=== PATIENT | female | born 1995 | race Caucasian/White ===

== ENCOUNTER 2024-06-25 08:04 | Inpatient (IN) ==
[2024-06-25] MEDS: SODIUM CHLORIDE 0.9% 1,000 ML IV SCH (08:44)
[2024-06-25] MEDS ORDERED: OXYTOCIN 30 UNITS/NSS 30 UNITS/500 ML BAG IV PRN (09:28)
[2024-06-25] MEDS ORDERED: CALCIUM CARBONATE 500 MG CHEWABLE TAB PO PRN (09:28)
[2024-06-25] MEDS ORDERED: LIDOCAINE 1% LOCAL 20 ML VIAL INFIL PRN (09:28)
--- NOTE | 2024-06-25 10:26 | History & Physical Report ---
Date of Service June 25, 2024 Assessment & Plan (1) Post-term , 40-42 weeks of gestation: Plan: Primip with Intrauterine at 40-5/7 weeks presents for induction of labor for postterm . Cervical balloon was successfully placed. We will begin Pitocin induction per labor delivery protocol. Epidural when requested. Anticipate vaginal . Admission and Anticipated Discharge Date Admission Date: June 25, 2024 History of Present Illness Primary Care Provider: KAYLYN Painting Patient is a 28-year-old 1 P0 female EDC 06/20/2024 who presents for post term induction of labor. has been uncomplicated except for elevated liver enzymes early in . GBS negative. Blood type is O+. Allergies Allergy/AdvReac Type Severity Reaction Status Date / Time No Known Drug Allergies Allergy Verified 06/24/24 10:56 Home Medications Medication Instructions Recorded Confirmed Type 21-iron fu-folic acid 1 tab PO UD 11/01/23 06/24/24 History [ Complete] breast pump #1 ea 04/24/24 06/24/24 Rx Patient History Medical History Varicella vaccination History of chicken pox Fibroadenoma 2011 removal COVID-19 (11/2021) Surgical History S/P excision of fibroadenoma of breast History of bunionectomy 2017 L foot Family History Mother Hypertension Colorectal cancer Father Dyslipidemia Denies family history of Ovarian cancer Breast cancer Social History Smoking Status: Never smoker Second Hand Exposure: No; Do You Dip or Chew Tobacco: No; Hx Alcohol Use: Yes Alcohol type: hard liquor Alcohol Intake Frequency: Monthly or Less Hx Substance Use: No Preferred Language: Thai Visual Impairment: Limited Hearing Ability: Normal Dock Attendant Required: No Beliefs That Will Affect Care: None marital status: Single marital status details: cate Doe (29) [phone] Current Living Situation: Spouse Current Living Situation Comment: lives with focarlos, dogs current occupational status: employed current occupation: [employer] Feels Safe at Home: Yes Childhood Exposure to Second-Hand Smoke: No Diet: regular caffeine: Yes Dental Care, Regularly: Yes Physical Activity Frequency: 3-4 Times per Week Seatbelt Use: always Sunscreen Use: Yes Do you think of yourself as: straight/heterosexual Assistive Devices: None Review of Systems All systems reviewed & are unremarkable except as noted in HPI & below Physical Exam Constitutional: WD/WN, vitals as above Psychiatric: A+Ox3, euthymic affect Genitourinary: OB Exam Abdomen: + vertex, + estimated weight (8-9) and + irregular contractions (rare) Manual OB Exam: + cervical dilation (1-2), + cervical effacement 60% and + station -1 (posterior) OB Exam Monitor Tracing: + external FHT monitor used, + external uterine monitor used, + category I and + normal FHT variability Patient agrees to placement of cervical balloon. After the cervix was visualized with a speculum, a Arzola catheter was threaded into the cervix to the internal os with the assistance of a stylette. 40 cc of sterile water was then instilled into the balloon. The stylette was removed and the catheter was placed on traction and secured to her left thigh. She tolerated the procedure well. Results & Data Vital Signs (Past 12 Hours) Vital Signs Temp Pulse Resp BP 06/25/24 08:59 97.7 F 81 19 133/79 06/25/24 08:15 97.7 F 81 18 133/79 Coding Level of Care Code 37234 INT INP/OBS CARE MIN Diagnoses Post-term , 40-42 weeks of gestation O48.0
[2024-06-25] MEDS: OXYTOCIN 30 UNITS/NSS 30 UNITS/500 ML BAG IV PRN (10:42)
[2024-06-25 11:04] LABS: Hematocrit (blood only) 36.4 % (37.0-47.0); Hemoglobin 12.2 g/dl (12.0-16.0); Mean Corpuscular Hemoglobin 28.8 pg (25.0-34.0); Mean Corpuscular Hgb Conc 33.5 g/dL (32.0-36.0); Mean Corpuscular Volume 85.8 fL (80.0-100.0); Mean Platelet Volume 11.9 fL (9.4-12.4); Platelet Count 132 K/uL (130-400); RDW Coefficient of Variation 12.7 % (11.5-14.5); RDW Standard Deviation 39.3 fL (36.4-46.3); Red Blood Count 4.24 M/uL (4.20-5.40); White Blood Count 6.85 K/ul (4.8-10.8)
[2024-06-25] MEDS ORDERED: NALBUPHINE HCL INJ 10 MG/ML AMP IV PRN (12:45)
[2024-06-25] MEDS ORDERED: fentaNYL citrate PF 100 MCG/2 ML VIAL EPI PRN (12:45)
[2024-06-25] MEDS ORDERED: SODIUM CHLORIDE 0.9% PF INJ 10 ML VIAL EPI PRN (12:45)
[2024-06-25] MEDS ORDERED: BUPIVACAINE 0.25% PF 30 ML VIAL EPI PRN (12:45)
[2024-06-25] MEDS ORDERED: NALOXONE HCL 1 MG in SODIUM CHLORIDE 0.9% 1,000 ML IV PRN (12:45)
[2024-06-25] MEDS ORDERED: LIDOCAINE 2% MPF LOCAL 5 ML VIAL EPI PRN (12:45)
[2024-06-25] MEDS ORDERED: ROPIVACAINE 0.5% PF 5 MG/ML 20 ML VIAL EPI PRN (12:45)
[2024-06-25] MEDS ORDERED: ePHEDrine sulfate 50 MG/ML AMP IV PRN (12:45)
[2024-06-25] MEDS ORDERED: NALOXONE HCL 0.4 MG/1 ML VIAL/CARP IV PRN (12:45)
[2024-06-25] MEDS ORDERED: diphenhydrAMINE 50 MG/ML VIAL IV PRN (12:45)
--- NOTE | 2024-06-25 12:45 | Anesthesiology Consultation ---
Date of Service June 25, 2024 Assessment & Plan Chart Review Chart Review: Acceptable Risk for Labor Epidural Consults Requested none History Height/Weight Height: 5 ft 10 in Weight: 86.275 kg Allergies Allergy/AdvReac Type Severity Reaction Status Date / Time No Known Drug Allergies Allergy Verified 06/24/24 10:56 Medications Home Medications Medication Instructions Recorded Confirmed Last Taken 21-iron fu-folic acid 1 tab PO UD 11/01/23 06/24/24 Unknown [ Complete] breast pump #1 ea 04/24/24 06/24/24 Unknown Active Medications Generic Name Dose Route Start Last Admin Trade Name Freq PRN Reason Stop Dose Admin Oxytocin 30 units in 500 mls @ 6 mls/hr 06/25/24 09:27 06/25/24 12:30 Pitocin 30 Units/Nss IV 06/27/24 09:26 0.36 units/hr .Q24H PRN 6 mls/hr Labor Induction/Augmentation Titration Protocol 0.36 UNITS/HR Sodium Chloride 1,000 mls @ 80 mls/hr 06/25/24 09:45 06/25/24 12:42 Nss IV 06/26/24 09:44 999 mls/hr .[id number] TRISTAN Infusion Past Medical History Medical History Varicella vaccination History of chicken pox Fibroadenoma 2011 removal COVID-19 (11/2021) Past Family History Family History Mother Hypertension Colorectal cancer Father Dyslipidemia Denies family history of Ovarian cancer Breast cancer Past Surgical History Surgical History S/P excision of fibroadenoma of breast History of bunionectomy 2017 L foot Social History Smoking Status: Never smoker Do You Dip or Chew Tobacco: No Hx Alcohol Use: Yes Alcohol type: hard liquor Hx Substance Use: No Physical Exam Vital Signs Last Vital Signs Temp 36.5 C 06/25/24 08:59 Pulse 63 06/25/24 11:41 Resp 19 06/25/24 08:59 BP 134/78 06/25/24 11:41 Testing Laboratory Results 06/25/24 10:33
[2024-06-25] MEDS: BUPIVACAINE 0.25% PF 30 ML VIAL ONE (13:20)
[2024-06-25] MEDS: fentaNYL citrate PF 100 MCG/2 ML VIAL ONE (13:20)
[2024-06-25] MEDS: ePHEDrine sulfate 50 MG/ML AMP ONE (13:20)
[2024-06-25] MEDS: SODIUM CHLORIDE 0.9% PF INJ 10 ML VIAL ONE (13:21)
[2024-06-25] MEDS: fentANYL 2 MCG/ML BUPIVacaine 0.125%-NSS 100ML BAG ONE (13:21)
[2024-06-25] MEDS: LIDOCAINE 2%/EPINEPHRINE 1:200,000 20 ML PF EPI STA (13:21)
[2024-06-25] MEDS: LIDOCAINE 2%/EPINEPHRINE 1:200,000 20 ML PF ONE (13:21)
[2024-06-25] MEDS: fentANYL 2 MCG/ML BUPIVacaine 0.125%-NSS 100ML BAG EPI PRN (13:23)
[2024-06-25] MEDS: SODIUM CHLORIDE 0.9% PF INJ 10 ML VIAL EPI STA (18:43)
[2024-06-25] MEDS: fentaNYL citrate PF 100 MCG/2 ML VIAL EPI STA (18:43)
[2024-06-25] MEDS: BUPIVACAINE 0.25% PF 30 ML VIAL EPI STA (18:43)
[2024-06-25] MEDS: ONDANSETRON INJ 2 MG/ML 2 ML VIAL IV PRN (19:59)
[2024-06-26 00:43] VITALS: O2SAT 97
[2024-06-26] MEDS ORDERED: oxyCODONE/ACETAMINOPHEN 5mg/325mg TAB PO PRN (01:03)
[2024-06-26] MEDS ORDERED: bisacodyL 10 MG SUPP PR PRN (01:03)
[2024-06-26] MEDS ORDERED: HYDROCORTISONE ACETATE 25 MG SUPP PR PRN (01:03)
[2024-06-26] MEDS ORDERED: ACETAMINOPHEN 325 MG TAB PO PRN (01:03)
[2024-06-26] MEDS ORDERED: OXYTOCIN 30 UNITS/NSS 30 UNITS/500 ML BAG IV PRN (01:03)
--- NOTE | 2024-06-26 01:10 | Delivery Summary ---
Vaginal Delivery Summary Date of Service June 26, 2024 Vaginal Delivery Summary and 2nd Degree LAC Patient is a 28-year-old 1 P0 female who presented for induction of labor because of postterm . She had a cervical balloon placed for an unfavorable cervix as well as starting Pitocin induction per labor and delivery protocol on the morning of her admission. After the balloon was expelled, she received epidural analgesia and membranes were ruptured for thin meconium stained fluid. She progressed to full dilation and pushed effectively over intact perineum for delivery of a viable male . After the head was delivered there was a loose nuchal cord noted and it was reduced prior to delivering the shoulders. Shoulders were delivered without maternal effort and the rest the delivered easily. He was initially placed on mother's abdomen for further attention and drying. He initially had low tone and poor respiratory effort and he was taken to the baby bed for stimulation and treatment. With further stimulation, he was then vigorous & crying. The cord was clamped and cut prior to a minute because of this. After cord blood was obtained, the placenta was expressed intact with a three-vessel cord. bleeding was controlled with dilute Pitocin. A second-degree vaginal perineal laceration and bilateral labial lacerations were repaired with 3-0 chromic in usual fashion. QBL was 268 mL. Mother and infant were bonding well after delivery[place] [facility] [place] Delivery Type Details: and 2nd Degree LAC
[2024-06-26] MEDS: IBUPROFEN 600 MG TAB PO PRN (01:31)
[2024-06-26] MEDS: BENZOCAINE 20% SPRY 85 APPLN/85 GM CAN EXT PRN (01:32)
[2024-06-26] MEDS: ACETAMINOPHEN 325 MG TAB PO PRN (04:39)
--- NOTE | 2024-06-26 06:55 | Medical Student Progress Note ---
Date of Service June 26, 2024 Assessment & Plan (1) Normal course: Plan: Patient is a 28 yr old day 1 s/p with an epidural and 2nd degree LAC. She is recovering very well and is ambulating and urinating. She has not had a BM yet and has been instructed to watch for passing gas. # Bleeding: She is currently bleeding and not passing any large clots. We expect her bleeding to continue to decrease with time. -Continue to monitor bleeding status #Pain Control: Her pain is well controlled on current regime. -Continue with ibuprofen and acetaminophen. #: -Patient is a first time mother and could benefit from seeing services to optimize her experience. #Discharge: She is overall recovering very well. Continue to monitor and considering discharge 48hrs after . Admission and Anticipated Discharge Date Admission Date: June 25, 2024 Subjective Patient is a 28 yr old day 1 s/p . Overall, she is doing very well and has no concerns at this time. She is able to ambulate and independently empty her bladder. She is unsure if she has passed any gas but has not had a BM. She is continuing to bleed but has not passed any large clots. Her pain is well managed on ibuprofen and acetaminophen. She rates it 2/10 at this time. She plans to breastfeed her baby. Physical Exam Physical Exam: Well appearing, NAD Respiratory: Lungs CTAB without wheezes, rales, rhonchi Cardiovascular: Heart RRR. A soft systolic flow murmur auscultate along the left sternal boarder. No rubs or gallops. Gastrointestinal (Abdomen): Abdomen is soft, nontender, nondistended. Uterus is firm, nontender, palpated below the umbilicus. Psychiatric: Appropriate mood and affect. Results & Data Vital Signs (Past 12 Hours) Vital Signs Temp Pulse Pulse Resp BP BP Pulse Ox 06/26/24 03:30 36.6 C 59 L 14 119/72 06/26/24 03:07 67 122/61 06/26/24 02:52 71 122/58 L 06/26/24 02:50 16 06/26/24 02:37 66 117/57 L 06/26/24 02:22 61 121/64 06/26/24 02:20 16 06/26/24 02:07 59 L 127/71 06/26/24 01:52 67 119/68 06/26/24 01:50 16 06/26/24 01:37 67 126/60 06/26/24 01:35 16 06/26/24 01:22 60 130/63 06/26/24 01:20 18 06/26/24 01:07 72 146/65 H 06/26/24 01:05 18 06/26/24 00:51 97 06/26/24 00:51 72 06/26/24 00:51 69 137/81 06/26/24 00:50 18 06/26/24 00:46 71 97 06/26/24 00:41 71 97 06/26/24 00:36 70 96 06/26/24 00:31 70 98 06/26/24 00:26 71 98 06/26/24 00:21 68 99 06/26/24 00:16 68 96 06/26/24 00:12 94 H 86 L 06/26/24 00:11 65 97 06/26/24 00:06 68 97 06/26/24 00:01 69 97 06/25/24 23:56 98 06/25/24 23:56 71 06/25/24 23:51 97 06/25/24 23:51 69 06/25/24 23:48 94 06/25/24 23:48 74 06/25/24 23:46 98 06/25/24 23:46 89 06/25/24 23:45 63 06/25/24 23:45 131/63 06/25/24 23:41 97 06/25/24 23:41 73 06/25/24 23:36 98 06/25/24 23:36 67 06/25/24 23:33 93 06/25/24 23:33 73 06/25/24 23:31 98 06/25/24 23:31 71 06/25/24 23:29 18 06/25/24 23:29 36.7 C 18 06/25/24 23:26 98 06/25/24 23:26 66 06/25/24 23:21 98 06/25/24 23:21 67 06/25/24 23:16 98 06/25/24 23:16 65 06/25/24 23:14 59 L 06/25/24 23:14 134/77 06/25/24 23:11 98 06/25/24 23:11 64 06/25/24 23:06 98 06/25/24 23:06 64 06/25/24 23:01 98 06/25/24 23:01 72 06/25/24 23:00 60 06/25/24 23:00 137/77 06/25/24 22:56 99 06/25/24 22:56 61 06/25/24 22:51 98 06/25/24 22:51 66 06/25/24 22:46 99 06/25/24 22:46 60 06/25/24 22:45 57 L 06/25/24 22:45 131/73 06/25/24 22:41 98 06/25/24 22:41 60 06/25/24 22:36 97 06/25/24 22:36 63 06/25/24 22:31 98 06/25/24 22:31 62 06/25/24 22:29 63 06/25/24 22:29 142/84 H 06/25/24 22:26 98 06/25/24 22:26 62 06/25/24 22:21 98 06/25/24 22:21 60 06/25/24 22:16 98 06/25/24 22:16 59 L 06/25/24 22:14 60 06/25/24 22:14 141/80 H 06/25/24 22:11 98 06/25/24 22:11 57 L 06/25/24 22:06 98 06/25/24 22:06 60 06/25/24 22:01 99 06/25/24 22:01 59 L 06/25/24 22:00 61 06/25/24 22:00 138/75 06/25/24 21:56 99 06/25/24 21:56 59 L 06/25/24 21:51 99 06/25/24 21:51 63 06/25/24 21:46 99 06/25/24 21:46 67 06/25/24 21:44 61 06/25/24 21:44 136/83 06/25/24 21:41 99 06/25/24 21:41 65 06/25/24 21:36 97 06/25/24 21:36 53 L 06/25/24 21:31 98 06/25/24 21:31 54 L 06/25/24 21:28 53 L 06/25/24 21:28 130/68 06/25/24 21:26 99 06/25/24 21:26 56 L 06/25/24 21:21 98 06/25/24 21:21 54 L 06/25/24 21:16 99 06/25/24 21:16 55 L 06/25/24 21:14 55 L 06/25/24 21:14 130/67 06/25/24 21:11 97 06/25/24 21:11 56 L 06/25/24 21:06 98 06/25/24 21:06 54 L 06/25/24 21:01 98 06/25/24 21:01 57 L 06/25/24 21:00 56 L 06/25/24 21:00 131/64 06/25/24 20:56 98 06/25/24 20:56 65 06/25/24 20:51 98 06/25/24 20:51 61 06/25/24 20:46 98 06/25/24 20:46 57 L 06/25/24 20:45 60 06/25/24 20:45 136/79 06/25/24 20:41 98 06/25/24 20:41 55 L 06/25/24 20:36 98 06/25/24 20:36 68 06/25/24 20:31 99 06/25/24 20:31 63 06/25/24 20:30 57 L 06/25/24 20:30 140/77 06/25/24 20:26 99 06/25/24 20:26 65 06/25/24 20:21 98 06/25/24 20:21 70 06/25/24 20:16 98 06/25/24 20:16 67 06/25/24 20:14 62 06/25/24 20:14 140/78 06/25/24 20:11 99 06/25/24 20:11 63 06/25/24 20:06 98 06/25/24 20:06 66 06/25/24 20:01 99 06/25/24 20:01 66 06/25/24 20:00 18 06/25/24 20:00 18 06/25/24 20:00 66 06/25/24 20:00 142/81 H 06/25/24 19:56 99 06/25/24 19:56 64 06/25/24 19:51 98 06/25/24 19:51 63 06/25/24 19:46 97 06/25/24 19:46 66 06/25/24 19:44 65 06/25/24 19:44 147/77 H 06/25/24 19:41 98 06/25/24 19:41 71 06/25/24 19:36 99 06/25/24 19:36 68 06/25/24 19:31 98 06/25/24 19:31 59 L 06/25/24 19:29 60 06/25/24 19:29 134/72 06/25/24 19:26 99 06/25/24 19:26 59 L 06/25/24 19:21 98 06/25/24 19:21 67 06/25/24 19:20 06/25/24 19:16 97 06/25/24 19:16 73 06/25/24 19:15 18 06/25/24 19:15 36.7 C 18 06/25/24 19:14 67 06/25/24 19:14 140/78 06/25/24 19:11 96 06/25/24 19:11 65 06/25/24 19:06 99 06/25/24 19:06 59 L 06/25/24 19:01 98 06/25/24 19:01 55 L 06/25/24 18:59 51 L 06/25/24 18:59 129/68 06/25/24 18:56 97 06/25/24 18:56 55 L 06/25/24 18:51 97 06/25/24 18:51 54 L O2 Del Method 06/26/24 03:30 Room Air 06/26/24 03:07 06/26/24 02:52 06/26/24 02:50 06/26/24 02:37 06/26/24 02:22 06/26/24 02:20 06/26/24 02:07 06/26/24 01:52 06/26/24 01:50 06/26/24 01:37 06/26/24 01:35 06/26/24 01:22 06/26/24 01:20 06/26/24 01:07 06/26/24 01:05 06/26/24 00:51 06/26/24 00:51 06/26/24 00:51 06/26/24 00:50 06/26/24 00:46 06/26/24 00:41 06/26/24 00:36 06/26/24 00:31 06/26/24 00:26 06/26/24 00:21 06/26/24 00:16 06/26/24 00:12 06/26/24 00:11 06/26/24 00:06 06/26/24 00:01 06/25/24 23:56 06/25/24 23:56 06/25/24 23:51 06/25/24 23:51 06/25/24 23:48 06/25/24 23:48 06/25/24 23:46 06/25/24 23:46 06/25/24 23:45 06/25/24 23:45 06/25/24 23:41 06/25/24 23:41 06/25/24 23:36 06/25/24 23:36 06/25/24 23:33 06/25/24 23:33 06/25/24 23:31 06/25/24 23:31 06/25/24 23:29 06/25/24 23:29 06/25/24 23:26 06/25/24 23:26 06/25/24 23:21 06/25/24 23:21 06/25/24 23:16 06/25/24 23:16 06/25/24 23:14 06/25/24 23:14 06/25/24 23:11 06/25/24 23:11 06/25/24 23:06 06/25/24 23:06 06/25/24 23:01 06/25/24 23:01 06/25/24 23:00 06/25/24 23:00 06/25/24 22:56 06/25/24 22:56 06/25/24 22:51 06/25/24 22:51 06/25/24 22:46 06/25/24 22:46 06/25/24 22:45 06/25/24 22:45 06/25/24 22:41 06/25/24 22:41 06/25/24 22:36 06/25/24 22:36 06/25/24 22:31 06/25/24 22:31 06/25/24 22:29 06/25/24 22:29 06/25/24 22:26 06/25/24 22:26 06/25/24 22:21 06/25/24 22:21 06/25/24 22:16 06/25/24 22:16 06/25/24 22:14 06/25/24 22:14 06/25/24 22:11 06/25/24 22:11 06/25/24 22:06 06/25/24 22:06 06/25/24 22:01 06/25/24 22:01 06/25/24 22:00 06/25/24 22:00 06/25/24 21:56 06/25/24 21:56 06/25/24 21:51 06/25/24 21:51 06/25/24 21:46 06/25/24 21:46 06/25/24 21:44 06/25/24 21:44 06/25/24 21:41 06/25/24 21:41 06/25/24 21:36 06/25/24 21:36 06/25/24 21:31 06/25/24 21:31 06/25/24 21:28 06/25/24 21:28 06/25/24 21:26 06/25/24 21:26 06/25/24 21:21 06/25/24 21:21 06/25/24 21:16 06/25/24 21:16 06/25/24 21:14 06/25/24 21:14 06/25/24 21:11 06/25/24 21:11 06/25/24 21:06 06/25/24 21:06 06/25/24 21:01 06/25/24 21:01 06/25/24 21:00 06/25/24 21:00 06/25/24 20:56 06/25/24 20:56 06/25/24 20:51 06/25/24 20:51 06/25/24 20:46 06/25/24 20:46 06/25/24 20:45 06/25/24 20:45 06/25/24 20:41 06/25/24 20:41 06/25/24 20:36 06/25/24 20:36 06/25/24 20:31 06/25/24 20:31 06/25/24 20:30 06/25/24 20:30 06/25/24 20:26 06/25/24 20:26 06/25/24 20:21 06/25/24 20:21 06/25/24 20:16 06/25/24 20:16 06/25/24 20:14 06/25/24 20:14 06/25/24 20:11 06/25/24 20:11 06/25/24 20:06 06/25/24 20:06 06/25/24 20:01 06/25/24 20:01 06/25/24 20:00 06/25/24 20:00 06/25/24 20:00 06/25/24 20:00 06/25/24 19:56 06/25/24 19:56 06/25/24 19:51 06/25/24 19:51 06/25/24 19:46 06/25/24 19:46 06/25/24 19:44 06/25/24 19:44 06/25/24 19:41 06/25/24 19:41 06/25/24 19:36 06/25/24 19:36 06/25/24 19:31 06/25/24 19:31 06/25/24 19:29 06/25/24 19:29 06/25/24 19:26 06/25/24 19:26 06/25/24 19:21 06/25/24 19:21 06/25/24 19:20 Room Air 06/25/24 19:16 06/25/24 19:16 06/25/24 19:15 06/25/24 19:15 06/25/24 19:14 06/25/24 19:14 06/25/24 19:11 06/25/24 19:11 06/25/24 19:06 06/25/24 19:06 06/25/24 19:01 06/25/24 19:01 06/25/24 18:59 06/25/24 18:59 06/25/24 18:56 06/25/24 18:56 06/25/24 18:51 06/25/24 18:51
--- NOTE | 2024-06-26 08:30 | Obstetrical Progress Note ---
Date of Service June 26, 2024 Assessment & Plan (1) Normal course: satisfactory course continue current plan Subjective Ambulation: ambulating normally Voiding: no voiding problems Passing Gas:: Yes Diet Tolerance:: regular diet Lochia:: Moderate Feeding Type:: breast feeding doing well this morning. minimal perineal pain Review of Systems All systems reviewed & are unremarkable except as noted in HPI & below Physical Exam Constitutional WD/WN, vitals as above Psychiatric A+Ox3, euthymic affect Genitourinary OB Exam Abdomen: + fundal height Fundus: + firm and + relation to umbilicus (1 below ) Results & Data Vital Signs (Past 12 Hours) Vital Signs Temp Pulse Pulse Resp BP BP Pulse Ox 06/26/24 03:30 97.9 F 59 L 14 119/72 06/26/24 03:07 67 122/61 06/26/24 02:52 71 122/58 L 06/26/24 02:50 16 06/26/24 02:37 66 117/57 L 06/26/24 02:22 61 121/64 06/26/24 02:20 16 06/26/24 02:07 59 L 127/71 06/26/24 01:52 67 119/68 06/26/24 01:50 16 06/26/24 01:37 67 126/60 06/26/24 01:35 16 06/26/24 01:22 60 130/63 06/26/24 01:20 18 06/26/24 01:07 72 146/65 H 06/26/24 01:05 18 06/26/24 00:51 97 06/26/24 00:51 72 06/26/24 00:51 69 137/81 06/26/24 00:50 18 06/26/24 00:46 71 97 06/26/24 00:41 71 97 06/26/24 00:36 70 96 06/26/24 00:31 70 98 06/26/24 00:26 71 98 06/26/24 00:21 68 99 06/26/24 00:16 68 96 06/26/24 00:12 94 H 86 L 06/26/24 00:11 65 97 06/26/24 00:06 68 97 06/26/24 00:01 69 97 06/25/24 23:56 98 06/25/24 23:56 71 06/25/24 23:51 97 06/25/24 23:51 69 06/25/24 23:48 94 06/25/24 23:48 74 06/25/24 23:46 98 06/25/24 23:46 89 06/25/24 23:45 63 06/25/24 23:45 131/63 06/25/24 23:41 97 06/25/24 23:41 73 06/25/24 23:36 98 06/25/24 23:36 67 06/25/24 23:33 93 06/25/24 23:33 73 06/25/24 23:31 98 06/25/24 23:31 71 06/25/24 23:29 18 06/25/24 23:29 98.1 F 18 06/25/24 23:26 98 06/25/24 23:26 66 06/25/24 23:21 98 06/25/24 23:21 67 06/25/24 23:16 98 06/25/24 23:16 65 06/25/24 23:14 59 L 06/25/24 23:14 134/77 06/25/24 23:11 98 06/25/24 23:11 64 06/25/24 23:06 98 06/25/24 23:06 64 06/25/24 23:01 98 06/25/24 23:01 72 06/25/24 23:00 60 06/25/24 23:00 137/77 06/25/24 22:56 99 06/25/24 22:56 61 06/25/24 22:51 98 06/25/24 22:51 66 06/25/24 22:46 99 06/25/24 22:46 60 06/25/24 22:45 57 L 06/25/24 22:45 131/73 06/25/24 22:41 98 06/25/24 22:41 60 06/25/24 22:36 97 06/25/24 22:36 63 06/25/24 22:31 98 06/25/24 22:31 62 06/25/24 22:29 63 06/25/24 22:29 142/84 H 06/25/24 22:26 98 06/25/24 22:26 62 06/25/24 22:21 98 06/25/24 22:21 60 06/25/24 22:16 98 06/25/24 22:16 59 L 06/25/24 22:14 60 06/25/24 22:14 141/80 H 06/25/24 22:11 98 06/25/24 22:11 57 L 06/25/24 22:06 98 06/25/24 22:06 60 06/25/24 22:01 99 06/25/24 22:01 59 L 06/25/24 22:00 61 06/25/24 22:00 138/75 06/25/24 21:56 99 06/25/24 21:56 59 L 06/25/24 21:51 99 06/25/24 21:51 63 06/25/24 21:46 99 06/25/24 21:46 67 06/25/24 21:44 61 06/25/24 21:44 136/83 06/25/24 21:41 99 06/25/24 21:41 65 06/25/24 21:36 97 06/25/24 21:36 53 L 06/25/24 21:31 98 06/25/24 21:31 54 L 06/25/24 21:28 53 L 06/25/24 21:28 130/68 06/25/24 21:26 99 06/25/24 21:26 56 L 06/25/24 21:21 98 06/25/24 21:21 54 L 06/25/24 21:16 99 06/25/24 21:16 55 L 06/25/24 21:14 55 L 06/25/24 21:14 130/67 06/25/24 21:11 97 06/25/24 21:11 56 L 06/25/24 21:06 98 06/25/24 21:06 54 L 06/25/24 21:01 98 06/25/24 21:01 57 L 06/25/24 21:00 56 L 06/25/24 21:00 131/64 06/25/24 20:56 98 06/25/24 20:56 65 06/25/24 20:51 98 06/25/24 20:51 61 06/25/24 20:46 98 06/25/24 20:46 57 L 06/25/24 20:45 60 06/25/24 20:45 136/79 01/23/25 20:41 98 06/25/24 20:41 55 L 06/25/24 20:36 98 06/25/24 20:36 68 06/25/24 20:31 99 06/25/24 20:31 63 06/25/24 20:30 57 L 06/25/24 20:30 140/77 O2 Del Method 06/26/24 03:30 Room Air 06/26/24 03:07 06/26/24 02:52 06/26/24 02:50 06/26/24 02:37 06/26/24 02:22 06/26/24 02:20 06/26/24 02:07 06/26/24 01:52 06/26/24 01:50 06/26/24 01:37 06/26/24 01:35 06/26/24 01:22 06/26/24 01:20 06/26/24 01:07 06/26/24 01:05 06/26/24 00:51 06/26/24 00:51 06/26/24 00:51 06/26/24 00:50 06/26/24 00:46 06/26/24 00:41 06/26/24 00:36 06/26/24 00:31 06/26/24 00:26 06/26/24 00:21 06/26/24 00:16 06/26/24 00:12 06/26/24 00:11 06/26/24 00:06 06/26/24 00:01 06/25/24 23:56 06/25/24 23:56 06/25/24 23:51 06/25/24 23:51 06/25/24 23:48 06/25/24 23:48 06/25/24 23:46 06/25/24 23:46 06/25/24 23:45 06/25/24 23:45 06/25/24 23:41 06/25/24 23:41 06/25/24 23:36 06/25/24 23:36 06/25/24 23:33 06/25/24 23:33 06/25/24 23:31 06/25/24 23:31 06/25/24 23:29 06/25/24 23:29 06/25/24 23:26 06/25/24 23:26 06/25/24 23:21 06/25/24 23:21 06/25/24 23:16 06/25/24 23:16 06/25/24 23:14 06/25/24 23:14 06/25/24 23:11 06/25/24 23:11 06/25/24 23:06 06/25/24 23:06 06/25/24 23:01 06/25/24 23:01 06/25/24 23:00 06/25/24 23:00 06/25/24 22:56 06/25/24 22:56 06/25/24 22:51 06/25/24 22:51 06/25/24 22:46 06/25/24 22:46 06/25/24 22:45 06/25/24 22:45 06/25/24 22:41 06/25/24 22:41 06/25/24 22:36 06/25/24 22:36 06/25/24 22:31 06/25/24 22:31 06/25/24 22:29 06/25/24 22:29 06/25/24 22:26 06/25/24 22:26 06/25/24 22:21 06/25/24 22:21 06/25/24 22:16 06/25/24 22:16 06/25/24 22:14 06/25/24 22:14 06/25/24 22:11 06/25/24 22:11 06/25/24 22:06 06/25/24 22:06 06/25/24 22:01 06/25/24 22:01 06/25/24 22:00 06/25/24 22:00 06/25/24 21:56 06/25/24 21:56 06/25/24 21:51 06/25/24 21:51 06/25/24 21:46 06/25/24 21:46 06/25/24 21:44 06/25/24 21:44 06/25/24 21:41 06/25/24 21:41 06/25/24 21:36 06/25/24 21:36 06/25/24 21:31 06/25/24 21:31 06/25/24 21:28 06/25/24 21:28 06/25/24 21:26 06/25/24 21:26 06/25/24 21:21 06/25/24 21:21 06/25/24 21:16 06/25/24 21:16 06/25/24 21:14 06/25/24 21:14 06/25/24 21:11 06/25/24 21:11 06/25/24 21:06 06/25/24 21:06 06/25/24 21:01 06/25/24 21:01 06/25/24 21:00 06/25/24 21:00 06/25/24 20:56 06/25/24 20:56 06/25/24 20:51 06/25/24 20:51 06/25/24 20:46 06/25/24 20:46 06/25/24 20:45 06/25/24 20:45 06/25/24 20:41 06/25/24 20:41 06/25/24 20:36 06/25/24 20:36 06/25/24 20:31 06/25/24 20:31 06/25/24 20:30 06/25/24 20:30
[2024-06-26] MEDS: DOCUSATE SODIUM 100 MG CAP PO SCH (08:51)
[2024-06-26] MEDS: PRENATAL VITAMIN 1 TAB PO SCH (08:51)
--- NOTE | 2024-06-26 09:17 | Anesthesia Procedure Note ---
Date of Service June 26, 2024 Anesthesia Post Epidural Note Vital Signs Vital Signs: Temp Pulse Resp BP Pulse Ox O2 Del Method 36.6 C 59 L 14 119/72 97 Room Air 06/26/24 03:30 06/26/24 03:30 06/26/24 03:30 06/26/24 03:30 06/26/24 00:51 06/26/24 03:30 Pain Intensity Abdomen: Pain Intensity: 1 Notes Mental Status: alert / awake / arousable and participated in evaluation Nausea / Vomiting: adequately controlled Pain: adequately controlled Airway Patency, RR, SpO2: stable & adequate BP & HR: stable & adequate Hydration State: stable & adequate Neuraxial Anesthesia: was administered and sensory block resolved Anesthetic Complications: no major complications apparent and Pt Satisfied with anesthetic care Epidural: Removed without complications and With tip intact
[2024-06-26] MEDS: DIPHTHER/TETAN/PERTUS Vaccine (Tdap, Adol/Adult) 0.5mL IM ONE (19:27)
[2024-06-27 07:25] LABS: Hematocrit (blood only) 29.5 % (37.0-47.0); Mean Corpuscular Hemoglobin 29.3 pg (25.0-34.0); Mean Corpuscular Hgb Conc 33.9 g/dL (32.0-36.0); Mean Corpuscular Volume 86.5 fL (80.0-100.0); Mean Platelet Volume 11.5 fL (9.4-12.4); Platelet Count 106 K/uL (130-400); RDW Coefficient of Variation 13.2 % (11.5-14.5); RDW Standard Deviation 40.9 fL (36.4-46.3); Red Blood Count 3.41 M/uL (4.20-5.40); White Blood Count 9.93 K/ul (4.8-10.8)
--- NOTE | 2024-06-27 08:00 | Obstetrical Progress Note ---
Date of Service June 27, 2024 Assessment & Plan (1) Encounter for assessment: Plan: Patient is PPD 1 s/p and doing well - Eating well, voiding well, ambulating well - vitals reviewed and within normal limits - pain well controlled with analgesics - OOB, ambulation, diet progression as tolerated - Blood type: O+, GBS neg, rubella immune - Plan to discharge tomorrow - After discharge, 6 week follow up with OBGYN Admission and Anticipated Discharge Date Admission Date: June 25, 2024 Supervising Physician Co-Signing Physician Notes Resident Physician Supervision Note: I was present with Dr. Burk during the history and exam. I discussed the case with the resident and agree with the findings and plan as documented in the note. Any exceptions or clarifications are listed here: [None] Documented By: Lori Cheung MD, FACOG Subjective 28 yo post- day 1 s/p Ambulation: ambulating normally Voiding: no voiding problems Passing Gas:: Yes Diet Tolerance:: regular diet Lochia:: Small Feeding Type:: bottle feeding and breast feeding, difficulty latching and increased breast pain while feeding Current Pain Level: 3/10 Resting comfortably this AM in NAD. Denies BAEZ, CP, SOB, N/V/D, LE pain/swelling. Physical Exam Physical Exam: General: patient resting comfortably, NAD, non-toxic in appearance, answers questions appropriately. Skin: warm, dry, intact HEENT: NC/AT, anicteric sclera, conjunctiva without injection, moist mucus membranes. Heart: +S1/S2, regular, no m/r/g Lungs: equal air entry bilaterally, no rales/rhonchi/wheezes Abd: +BS, soft, NT/ND, uterine fundus firm at umbilicus Ext: warm, no clubbing/cyanosis or edema, Quique's neg. Neuro: nonfocal, speech intact, no facial droop, moving all extremities. Results & Data Vital Signs (Past 12 Hours) Vital Signs Temp Pulse Resp BP Pulse Ox O2 Del Method 06/26/24 23:42 36.8 C 65 16 126/76 97 Room Air Resident Activity Tracking Resident Involvement: Resident Care Provided Care Provided: OB Delivery
[2024-06-27] MEDS: bisacodyL 5 MG TABEC PO SCH (20:08)
[2024-06-28] MEDS: ONDANSETRON 4 MG OD TAB ONE (04:09)
[2024-06-28 04:18] VITALS: RESP 16
[2024-06-28 07:37] VITALS: BP 124/77; PULSE 60; TEMP 97.9
--- NOTE | 2024-06-28 08:11 | Obstetrical Progress Note ---
Date of Service June 28, 2024 Assessment & Plan (1) Encounter for assessment: PPD#2 doing well. DC instructions reviewed. 6w followup office. Subjective Ambulation: ambulating normally Voiding: no voiding problems Diet Tolerance:: regular diet Lochia:: Moderate Review of Systems All systems reviewed & are unremarkable except as noted in HPI & below Physical Exam Constitutional WD/WN, vitals as above no acute distress Respiratory normal respiratory effort Cardiovascular Rate/Rhythm: regular rate and regular rhythm Gastrointestinal (Abdomen) Inspection/Auscultation: abdomen normal to inspection; abdomen not distended Percussion/Palpation: abdomen soft Genitourinary OB Exam Abdomen: + fundal height Fundus: + firm; not tender Results & Data Vital Signs (Past 12 Hours) Vital Signs Temp Pulse Resp BP Pulse Ox O2 Del Method 06/28/24 07:05 36.6 C 60 16 124/77 97 Room Air 06/28/24 03:00 36.7 C 65 16 131/82 97 Room Air 06/27/24 22:56 36.6 C 65 18 128/77 97 Room Air
[2024-06-28 08:34] LABS: Hematocrit (blood only) 30.1 % (37.0-47.0); Hemoglobin 10.2 g/dl (12.0-16.0); Mean Corpuscular Hemoglobin 29.5 pg (25.0-34.0); Mean Corpuscular Hgb Conc 33.9 g/dL (32.0-36.0); Mean Platelet Volume 11.1 fL (9.4-12.4); Platelet Count 119 K/uL (130-400); RDW Standard Deviation 41.1 fL (36.4-46.3); Red Blood Count 3.46 M/uL (4.20-5.40); White Blood Count 8.15 K/ul (4.8-10.8)
== END 2024-06-28 12:03 | disposition home or self-care (01) | DRG 807 ==
LOC: 4S1 08:04 → 4E2 06-26 03:41